=== PATIENT | female | born 1960 | race Caucasian/White ===

== ENCOUNTER → 2016-12-21 | Outpatient (CLI) | payer BC ==
--- NOTE | 2016-12-22 13:06 | MM ---
Reason for exam: screening (asymptomatic). Last mammogram was performed 1 year and 2 months ago. History: Patient is postmenopausal. Reductions of both breasts, August 31, 2007. Physical Findings: A clinical breast exam by your physician is recommended on an annual basis and results should be correlated with mammographic findings. MG Screening Mammo w CAD Bilateral CC and MLO view(s) were taken. Prior study comparison: October 27, 2015, bilateral MG screening mammo w CAD. August 15, 2014, bilateral MG screening mammo w CAD. July 31, 2013, bilateral MG screening mammo w CAD. The breast tissue is heterogeneously dense. This may lower the sensitivity of mammography. No suspicious abnormality. No significant changes when compared with prior studies. ASSESSMENT: Negative, BI-RAD 1 RECOMMENDATION: Routine screening mammogram of both breasts in 1 year.
== END | disposition home or self-care (01) ==
LOC: RADMAMWWP 06:57
PROVIDERS: ATTEND Obstetrics & Gynecology
DX: Z12.31 Encounter for screening mammogram for malignant neoplasm of breast (principal)

== ENCOUNTER → 2017-01-30 | Outpatient (CLI) | payer BC ==
--- NOTE | 2017-01-30 08:07 | BD ---
EXAMINATION TYPE: MG DEXA axial skeleton. DATE OF EXAM: 01/30/2017 COMPARISON: 06/15/2012 CLINICAL HISTORY: 56-year-old female postmenopausal screening, known osteoporosis Height: 60.1 IN Weight: 127 LBS FRAX RISK QUESTIONS: Alcohol (3 or more units per day): NO Family History (Parent hip fracture): NO Glucocorticoids (More than 3mos): NO (Ex: prednisone, prednisolone, methylprednisolone, dexamethasone, and hydrocortisone). History of Fracture in Adulthood: NO Secondary Osteoporosis: 1. Type 1 Diabetes: NO 2. Hyperthyroidism: NO 3. Menopause before 45: NO 4. Malnutrition: NO 5. Chronic liver disease: NO Rheumatoid Arthritis: NO Current Tobacco Use: NO RISK FACTORS HISTORY OF: Family History of Osteoporosis: YES MOTHER Active: YES Postmenopausal woman: AGE 44 MEDICATIONS: Osteoporosis Medications: YES Which medication: ACTONEL How Lon YEARS Additional Medications: VIT D, ACTONEL, EXAM MEASUREMENTS: Bone mineral densitometry was performed using the [employer] System. Bone mineral density as measured about the Lumbar spine is: ----- L1-L4(G/cm2): 0.870 T Score Values are as follows: ----- L2: -2.9 ----- L3: -2.7 ----- L4: -2.5 ----- L1-L4: -2.6 Bone mineral density has: Increased 5.1% since study of: 06/15/2012 Bone mineral density about the R hip (g/cm2): 0.748 Bone mineral density about the L hip (g/cm2): 0.766 T Score values are as follows: -----R Neck: -2.1 -----L Neck: -2.0 -----R Total: -1.9 -----L Total: -1.6 Bone mineral density has: Increased 2.2% since study of: 06/15/2012 IMPRESSION: Osteoporosis (T Score less than -2.5) as noted by T Score values at the There is increased fracture risk and therapy is usually indicated based on age. Re-Screen 1-2 years. NOTE: T-SCORE=SD OF THE YOUNG ADULT MEAN.
== END | disposition home or self-care (01) ==
LOC: RADBDWWP 07:08
PROVIDERS: ATTEND Obstetrics & Gynecology
DX: M81.0 Age-related osteoporosis without current pathological fracture (principal); E78.4 Other hyperlipidemia
CPT/HCPCS: 77080; 80061; 84439; 84443

== ENCOUNTER → 2018-02-06 | Outpatient (CLI) | payer BC ==
--- NOTE | 2018-02-12 10:09 | MM ---
Reason for exam: screening (asymptomatic). Last mammogram was performed 1 year and 2 months ago. History: Patient is postmenopausal. Reductions of both breasts, August 31, 2007. Physical Findings: A clinical breast exam by your physician is recommended on an annual basis and results should be correlated with mammographic findings. MG Screening Mammo w CAD Bilateral CC and MLO view(s) were taken. Prior study comparison: December 21, 2016, bilateral MG screening mammo w CAD. October 27, 2015, bilateral MG screening mammo w CAD. The breast tissue is heterogeneously dense. This may lower the sensitivity of mammography. There is chronic nodularity in the left inferior breast. No significant changes when compared with prior studies. ASSESSMENT: Negative, BI-RAD 1 RECOMMENDATION: Routine screening mammogram of both breasts in 1 year.
== END | disposition home or self-care (01) ==
LOC: RADMAMWWP 16:39
PROVIDERS: ATTEND Obstetrics & Gynecology
DX: Z12.31 Encounter for screening mammogram for malignant neoplasm of breast (principal)
CPT/HCPCS: 77067

== ENCOUNTER → 2018-06-06 | Day surgery (SDC) | payer BC ==
[2018-06-05 08:17] VITALS: BMI 24.0
[~2018-06-06] MED LIST: LACTATED RINGERS 1,000 ML IV SCH; LIDOCAINE 1% 20 ML VIAL (10MG/ML) FOR IV START INTRADERMA PRN; LIDOCAINE 1% INJ 10MG/ML (20 ML MDV) ONE; PROPOFOL 10 MG/ML 20 ML VIAL IV ONE
--- NOTE | 2018-06-06 08:19 | P.GSHP ---
History of Present Illness H&P Date: 06/06/18 CHIEF COMPLAINT: GERD and colon screen HISTORY OF PRESENT ILLNESS: The patient is a 58-year-old female who presents with gastroesophageal reflux disease and need for colon screen. Upper and lower endoscopy were offered for further evaluation and management. PAST MEDICAL HISTORY: Please see list. PAST SURGICAL HISTORY: Please see list. MEDICATIONS: Please see list. ALLERGIES: Please see list. SOCIAL HISTORY: No illicit drug use FAMILY HISTORY: No reports of Crohn disease or ulcerative colitis. REVIEW OF ORGAN SYSTEMS: CONSTITUTIONAL: No reports of fevers or chills. GI: Denies any blood in stools or constipation. PHYSICAL EXAM: VITAL SIGNS: Stable GENERAL: Well-developed pleasant in no acute distress. HEENT: No scleral icterus. Extraocular movements grossly intact. Moist buccal mucosa. NECK: Supple without lymphadenopathy. CHEST: Unlabored respirations. Equal bilateral excursions. CARDIOVASCULAR: Regular rate and rhythm. Distal 2+ pulses. ABDOMEN: Soft, nondistended. MUSCULOSKELETAL: No clubbing, cyanosis, or edema. ASSESSMENT: 1. Gastroesophageal reflux disease 2. Colon screen. PLAN: 1. Recommend proceeding with an upper and lower endoscopy Past Medical History Past Medical History: No Reported History History of Any Multi-Drug Resistant Organisms: None Reported Past Surgical History: Appendectomy, Breast Surgery Additional Past Surgical History / Comment(s): BREAST REDUCTION. BILAT CATARACTS REMOVED. COLONOSCOPY Past Anesthesia/Blood Transfusion Reactions: No Reported Reaction Smoking Status: Never smoker - Past Family History Mother Family Medical History: No Reported History Medications and Allergies Home Medications Medication Instructions Recorded Confirmed Type No Known Home Medications 06/05/18 06/05/18 History Allergies Allergy/AdvReac Type Severity Reaction Status Date / Time No Known Allergies Allergy Verified 06/05/18 08:10
[2018-06-06 10:15] VITALS: RESP 16; TEMP 97.7
--- NOTE | 2018-06-06 11:22 | P.PCN ---
Date of Procedure: 06/06/18 Description of Procedure: PREOPERATIVE DIAGNOSIS: Colonoscopy screening POSTOPERATIVE DIAGNOSIS: Colonoscopy screening Transverse colon polyp OPERATION: Colonoscopy to the ileocecal valve and appendiceal orifice. Colonoscopy wit cold forceps biopsies. SURGEON: Anu Jeter MD. ANESTHESIA: MAC. INDICATIONS: The patient is a 58-year-old female who presents for colonoscopy screening. Last colonoscopy was 10 years ago. Benefits and risks were described and informed consent was obtained. DESCRIPTION OF PROCEDURE: The patient had undergone Gatorade, MiraLAX and Dulcolax prep. Shee had been brought into the operating room and laid in the left lateral decubitus position. After adequate intravenous sedation, the rectum was examined with 2% lidocaine jelly. No external hemorrhoids were encountered. The rectal tone was within normal limits. No lesions were palpated in the rectal vault. The sigmoid colon was highly tortuous and redundant requiring abdominal wall pressure and multiple maneuvers to advance the scope safely. An Olympus colonoscope was advanced until the ileocecal valve and appendiceal orifice were clearly viewed. The prep was fair with visualization of the mucosal folds. No scattered diverticulosis was encountered. Cold forcep biopsy at transverse colon. No evidence of focal colitis was found. Retroflexion of the scope demonstrated grade 1 internal hemorrhoids without active bleeding or inflammation. The colon was desufflated. The patient had tolerated the procedure well. Withdrawal time was over 6 minutes. FINDINGS: [place] preparation quality scale 2 (1-5) Internal hemorrhoids, grade 1 No external hemorrhoids Sigmoid colon was highly tortuous and redundant No arteriovenous malformations. Removal of 1 polyp: - Cold forceps biopsy at hepatic flexure colon, 4 mm polyp. No scattered diverticulosis was encountered. No focal colitis. RECOMMENDATIONS: Repeat colonoscopy years2023. Plan - Discharge Summary Discharge Rx Participant: Yes New Discharge Prescriptions: No Action Loratadine [Claritin] 10 mg PO DAILY Discharge Medication List Loratadine [Claritin] 10 mg PO DAILY 06/06/18 [History] Follow up Appointment(s)/Referral(s): Anu Jeter MD [STAFF PHYSICIAN] - As Needed Patient Instructions/Handouts: Colorectal Polyps (DC) Activity/Diet/Wound Care/Special Instructions: Repeat colonoscopy in 5 years2023 Discharge Disposition: HOME SELF-CARE
[2018-06-06 11:51] VITALS: BP 102/57; PULSE 73
== END | disposition home or self-care (01) ==
LOC: ORWHC2ENDO 09:39
PROVIDERS: ATTEND Surgery Plastic and Reconstructive Surgery
DX: Z12.11 Encounter for screening for malignant neoplasm of colon (principal); K63.5 Polyp of colon; K21.9 Gastro-esophageal reflux disease without esophagitis; Q43.8 Other specified congenital malformations of intestine; K64.0 First degree hemorrhoids
CPT/HCPCS: 88305; 45380; J2001; J2704

== ENCOUNTER → 2019-02-19 | Outpatient (CLI) | payer BC ==
--- NOTE | 2019-02-19 08:42 | BD ---
EXAMINATION TYPE: Axial Bone Density DATE OF EXAM: 02/19/2019 COMPARISON: DEXA bone scan 2016 CLINICAL HISTORY: Postmenopausal female. Height: 60.25 Weight: 128 FRAX RISK QUESTIONS: Alcohol (3 or more units per day): no Family History (Parent hip fracture): no Glucocorticoids (More than 3mos): no (Ex: prednisone, prednisolone, methylprednisolone, dexamethasone, and hydrocortisone). History of Fracture in Adulthood: no Secondary Osteoporosis: 1. Type 1 Diabetes: no 2. Hyperthyroidism: no 3. Menopause before 45: no 4. Malnutrition: no 5. Chronic liver disease: no Rheumatoid Arthritis: no Current Tobacco Use: no RISK FACTORS HISTORY OF: Family History of Osteoporosis: yes, mother Active: yes Diet low in dairy products/other sources of calcium: no Postmenopausal woman: yes Take estrogen and/or progesterone medications: no Lost more than 2 inches in height since high school: no Frequent falls: no Poor Health: no Hyperparathyroidism: no Adrenal Insufficiency: no MEDICATIONS: Prednisone or other steroids: no Thyroid Medications:no Osteoporosis Medications: not now Which medication: Actonel How Long: about 2 years Additional Medications: Vitamin D Additional History: EXAM MEASUREMENTS: Bone mineral densitometry was performed using the [employer] System. Bone mineral density as measured about the Lumbar spine is: ----- L1-L4(G/cm2): 0.862 T Score Values are as follows: ----- L2: -2.6 ----- L3: -3.4 ----- L4: -2.4 ----- L1-L4: -2.7 Bone mineral density has: Decreased -2.3% since study of: 01/30/2017 Bone mineral density about the R hip (g/cm2): 0.703 Bone mineral density about the L hip (g/cm2): 0.755 T Score values are as follows: -----R Neck: -2.4 -----L Neck: -2.0 -----R Total: -2.1 -----L Total: -1.9 Bone mineral density has: Decreased -4.9 % since study of: 01/30/2017 IMPRESSION: Osteoporosis (T Score less than -2.5) remains present. There remains increased fracture risk and therapy is usually indicated based on age. Re-Screen 1-2 years. NOTE: T-SCORE=SD OF THE YOUNG ADULT MEAN.
--- NOTE | 2019-02-20 10:16 | MM ---
Reason for exam: screening (asymptomatic). Last mammogram was performed 1 year ago. History: Patient is postmenopausal. Reductions of both breasts, August 31, 2007. Physical Findings: A clinical breast exam by your physician is recommended on an annual basis and results should be correlated with mammographic findings. MG Screening Mammo w CAD Bilateral CC and MLO view(s) were taken. Prior study comparison: February 06, 2018, bilateral MG screening mammo w CAD. December 21, 2016, bilateral MG screening mammo w CAD. The breast tissue is heterogeneously dense. This may lower the sensitivity of mammography. There is no discrete abnormality. No significant changes when compared with prior studies. ASSESSMENT: Negative, BI-RAD 1 RECOMMENDATION: Routine screening mammogram of both breasts in 1 year.
== END | disposition home or self-care (01) ==
LOC: RADMAMWWP 07:09
PROVIDERS: ATTEND Obstetrics & Gynecology
DX: Z12.31 Encounter for screening mammogram for malignant neoplasm of breast (principal); M81.0 Age-related osteoporosis without current pathological fracture
CPT/HCPCS: 77067; 77080

== ENCOUNTER → 2020-05-15 | Outpatient (CLI) | payer BC ==
--- NOTE | 2020-05-18 11:32 | MM ---
Reason for exam: screening (asymptomatic). Last mammogram was performed 1 year and 3 months ago. History: Patient is postmenopausal. Reductions of both breasts, August 31, 2007. Physical Findings: A clinical breast exam by your physician is recommended on an annual basis and results should be correlated with mammographic findings. MG Screening Mammo w CAD Bilateral CC and MLO view(s) were taken. Prior study comparison: February 19, 2019, bilateral MG screening mammo w CAD. February 06, 2018, bilateral MG screening mammo w CAD. The breast tissue is heterogeneously dense. This may lower the sensitivity of mammography. There is no discrete abnormality. ASSESSMENT: Negative, BI-RAD 1 RECOMMENDATION: Routine screening mammogram of both breasts in 1 year.
== END | disposition home or self-care (01) ==
LOC: RADMAMWWP 07:44
PROVIDERS: ATTEND Obstetrics & Gynecology
DX: Z12.31 Encounter for screening mammogram for malignant neoplasm of breast (principal)
CPT/HCPCS: 77067

== ENCOUNTER → 2020-10-31 | Outpatient (CLI) | payer BC ==
[2020-10-31 11:39] LABS: HCT 41.4 % (37.2-46.3); HGB 13.4 g/dL (12.0-15.0); MCH 29.5 pg (27.0-32.0); MCHC 32.4 g/dL (32.0-37.0); Mean Platelet Volume 10.5 fL (9.5-12.2); Platelet Count 263 X 10*3/uL (140-440); RBC 4.55 X 10*6/uL (4.10-5.20); RDW 12.5 % (11.5-14.5); WBC 6.47 X 10*3/uL (4.50-10.00)
[2020-10-31 12:12] LABS: African American GFR (CKD) 113.2 (60.0-200.0); Albumin 4.1 g/dL (3.80-4.90); Albumin/Globulin Ratio 1.64 (1.60-3.17); Anion Gap 6.9 mmol/L (4.00-12.00); BUN/Creat Ratio 36.67 Ratio (12.00-20.00); Carbon Dioxide 26.1 mmol/L (21.6-31.8); Chol/HDL Ratio 3.4; Globulin 2.5 g/dL (1.6-3.3); LDL Cholesterol,Calculated 116.8 mg/dL (0.0-131.0); Non-African American GFR(CKD) 97.7 (60.0-200.0); Total Bilirubin 0.6 mg/dL (0.2-1.2); Total Protein 6.6 g/dL (6.2-8.2); VLDL Calculation 22.2 mg/dL (5.00-40.00)
== END | disposition home or self-care (01) ==
LOC: LABWHC1 08:00
PROVIDERS: ATTEND Family Medicine
DX: Z00.00 Encounter for general adult medical examination without abnormal findings (principal)
CPT/HCPCS: 36415; 80053; 80061; 85027

== ENCOUNTER → 2021-06-16 | Outpatient (CLI) | payer BC ==
--- NOTE | 2021-06-17 19:57 | BD ---
EXAMINATION TYPE: Axial Bone Density DATE OF EXAM: 06/16/2021 COMPARISON: 02/19/2019 CLINICAL HISTORY: 61 years year old Female. ICD-10 CODE: M85.88 DISORDER OF BONE DENSITY Height: 59 IN Weight: 135 LBS RISK FACTORS HISTORY OF: Family History of Osteoporosis: YES MOTHER AND SISTER Active: YES Diet low in dairy products/other sources of calcium: YES Postmenopausal woman: AGE 46 MEDICATIONS: Osteoporosis Medications: YES Which medication: ACTONEL How Lon YEARS Additional Medications: ACTONEL, CALCIUM, VIT D,EYE DROPS EXAM MEASUREMENTS: Bone mineral densitometry was performed using the [employer] System. Bone mineral density as measured about the Lumbar spine is: ----- L1-L4(G/cm2): 0.864 T Score Values are as follows: ----- L1: -1.9 ----- L2: -2.9 ----- L3: -2.5 ----- L4: -3.2 ----- L1-L4: -2.6 Bone mineral density has: Decreased -0.5% since study of: 02/19/2019 Bone mineral density about the R hip (g/cm2): 0.747 Bone mineral density about the L hip (g/cm2): 0.740 T Score values are as follows: -----R Neck: -2.1 -----L Neck: -2.1 -----R Total: -1.9 -----L Total: -1.9 Bone mineral density has: Increased 2.3% since study of: 02/19/2019 FRAX%s: The graph provided illustrates a 10.9 chance for a major osteoporotic fx and a 1.7 chance for the hips probability for fx in 10 years time. IMPRESSION: Osteoporosis (T Score less than -2.5). There is increased fracture risk and therapy is usually indicated based on age. Re-Screen 1-2 years. NOTE: T-SCORE=SD OF THE YOUNG ADULT MEAN.
== END | disposition home or self-care (01) ==
LOC: RADBDWWP 16:04
PROVIDERS: ATTEND Obstetrics & Gynecology
DX: Z12.31 Encounter for screening mammogram for malignant neoplasm of breast (principal); M85.88 Other specified disorders of bone density and structure, other site
CPT/HCPCS: 77080

== ENCOUNTER → 2021-06-17 | Outpatient (CLI) | payer BC ==
--- NOTE | 2021-06-18 09:34 | MM ---
Reason for exam: screening (asymptomatic). Last mammogram was performed 1 year and 1 month ago. History: Patient is postmenopausal. Reductions of both breasts, August 31, 2007. Physical Findings: A clinical breast exam by your physician is recommended on an annual basis and results should be correlated with mammographic findings. MG Screening Mammo w CAD Bilateral CC and MLO view(s) were taken. Prior study comparison: May 15, 2020, bilateral MG screening mammo w CAD. February 19, 2019, bilateral MG screening mammo w CAD. The breast tissue is heterogeneously dense. This may lower the sensitivity of mammography. There is chronic nodularity in the left breast inferiorly. Status post reduction mammoplasty changes. No significant changes when compared with prior studies. ASSESSMENT: Benign, BI-RAD 2 RECOMMENDATION: Routine screening mammogram of both breasts in 1 year.
== END | disposition home or self-care (01) ==
LOC: RADMAMWWP 07:00
PROVIDERS: ATTEND Obstetrics & Gynecology
DX: Z12.31 Encounter for screening mammogram for malignant neoplasm of breast (principal)
CPT/HCPCS: 77067

== ENCOUNTER → 2021-12-09 | Outpatient (CLI) | payer BC ==
[2021-12-09 10:53] LABS: HCT 38.9 % (37.2-46.3); HGB 12.9 g/dL (12.0-15.0); MCH 29.8 pg (27.0-32.0); MCHC 33.2 g/dL (32.0-37.0); MCV 89.8 fL (80.0-97.0); Mean Platelet Volume 10.4 fL (9.5-12.2); NRBC Per 100 WBC 0 /100 WBCS (0.0-0.0); Platelet Count 281 X 10*3/uL (140-440); RBC 4.33 X 10*6/uL (4.10-5.20); RDW 12.1 % (11.5-14.5); WBC 6.41 X 10*3/uL (4.50-10.00)
[2021-12-09 12:15] LABS: ALT 15 U/L (8-44); AST 25 U/L (13-35); African American GFR (CKD) 106.9 (60.0-200.0); Albumin 4.1 g/dL (3.8-4.9); Albumin/Globulin Ratio 1.52 (1.60-3.17); Alkaline Phosphatase 69 U/L (41-126); BUN/Creat Ratio 29.14 Ratio (12.00-20.00); Blood Urea Nitrogen 20.4 mg/dL (9.0-27.0); Calcium 9.1 mg/dL (8.7-10.3); Carbon Dioxide 28.7 mmol/L (20.0-27.5); Chloride 104 mmol/L (96-109); Chol/HDL Ratio 3.22 Ratio; Globulin 2.7 g/dL (1.6-3.3); Glucose 75 mg/dL (70-110); Non-African American GFR(CKD) 92.2 (60.0-200.0); Sodium 140 mmol/L (135-145); Total Protein 6.8 g/dL (6.2-8.2)
== END | disposition home or self-care (01) ==
LOC: LABWHC1 07:06
PROVIDERS: ATTEND Family Medicine
DX: Z00.00 Encounter for general adult medical examination without abnormal findings (principal)
CPT/HCPCS: 36415; 80053; 80061; 85027

== ENCOUNTER → 2022-06-24 | Outpatient (CLI) | payer BC ==
--- NOTE | 2022-06-27 15:34 | MM ---
Reason for Exam: Screening (asymptomatic). Last mammogram was performed 1 year(s) and 1 month(s) ago. Patient History: Menarche at age 12. First Full-Term at age 25. Postmenopausal. 08/31/2007, Bilateral Reduction. Risk Values: Fabiana 5 year model risk: 1.6%. NCI Lifetime model risk: 6.6%. Prior Study Comparison: 02/19/2019 Bilateral Screening Mammogram, [facility]. 05/15/2020 Bilateral Screening Mammogram, [facility]. 06/17/2021 Bilateral Screening Mammogram, [facility]. Tissue Density: The breast tissue is heterogeneously dense. This may lower the sensitivity of mammography. Findings: Analyzed By CAD. There is no suspicious group of microcalcifications or new suspicious mass in either breast. Overall Assessment: Negative, BI-RAD 1 Management: Screening Mammogram of both breasts in 1 year. A clinical breast exam by your physician is recommended on an annual basis and results should be correlated with mammographic findings. Electronically signed and approved by: Ryan Ramirez M.D. Radiologis
== END | disposition home or self-care (01) ==
LOC: RADMAMWWP 11:47
PROVIDERS: ATTEND Obstetrics & Gynecology
DX: Z12.31 Encounter for screening mammogram for malignant neoplasm of breast (principal); Z78.0 Asymptomatic menopausal state
CPT/HCPCS: 77067

== ENCOUNTER 2023-06-16 08:55 | Day surgery (SDC) | payer BC ==
[2023-06-16] MEDS: LACTATED RINGERS 1,000 ML IV SCH (09:14)
[2023-06-16 09:42] VITALS: RESP 16; TEMP 97.8
[2023-06-16] MEDS ORDERED: LIDOCAINE 1% INJ 10MG/ML (20 ML MDV) ONE (10:12)
[2023-06-16] MEDS ORDERED: PROPOFOL 10 MG/ML 20 ML VIAL IV ONE (10:12)
--- NOTE | 2023-06-16 10:36 | P.PCN ---
Date of Procedure: 06/16/23 Procedure(s) Performed: BRIEF HISTORY: Patient is a 63-year-old pleasant White female scheduled for an elective colonoscopy as a part of evaluation of prior history of colon polyps. Last colonoscopy was 5 years ago. PROCEDURE PERFORMED: Colonoscopywith snare polypectomy. PREOPERATIVE DIAGNOSIS: history of colon polyps. IV sedation per Anesthesia. PROCEDURE: After informed consent was obtained, the patient, was brought into the endoscopy unit. IV sedation was administered by Anesthesia under continuous monitoring. Digital rectal examination was normal. Initially the Olympus CF-160 flexible video colonoscope was then inserted in the rectum, gradually advanced into the cecum without any difficulty. Careful examination was performed as the scope was gradually being withdrawn. Ileocecal valve and the appendiceal orifice were visualized and appeared normal. Prep was excellent. Mucosa of the cecum,at 7-8 mm flat polyp that was removed by cold snare polypectomy. In the transverse colon there was a 5 mm polyp removed by cold snare polypectomy. Rest of the ascending colon, transverse colon, descending colon, sigmoid colon, and rectum appeared normal. scattered sigmoid diverticulosis.Retroflexion was performed in the rectum and no lesions were seen. The patient tolerated the procedure well. IMPRESSION: 7-8 mm flat cecal polyp status post cold snare polypectomy 5 mm transverse colon polyp status post cold snare polypectomy Scattered diverticulosis RECOMMENDATIONS: Findings of this examination were discussed with the patient as well as her family. She was advised to follow with the biopsy results. If the biopsy results adenoma she can have a repeat colonoscopyin 5 years..
[2023-06-16 11:00] VITALS: PULSE 70
[2023-06-16 11:38] VITALS: BP 112/55
== END 2023-06-16 11:23 | disposition home or self-care (01) ==
LOC: ORWHC2ENDO 08:55
PROVIDERS: ATTEND Internal Medicine Gastroenterology
DX: Z12.11 Encounter for screening for malignant neoplasm of colon (principal); D12.0 Benign neoplasm of cecum; K57.30 Diverticulosis of large intestine without perforation or abscess without bleeding; L98.9 Disorder of the skin and subcutaneous tissue, unspecified; Z86.010 Personal history of colon polyps; Z79.899 Other long term (current) drug therapy
CPT/HCPCS: 88305; 45385; J2001; J2704

== ENCOUNTER → 2023-06-26 | Outpatient (CLI) | payer BC ==
--- NOTE | 2023-06-26 15:23 | BD ---
EXAMINATION TYPE: Axial Bone Density DATE OF EXAM: 06/26/2023 CLINICAL HISTORY: 63 years old Female. ICD-10 CODE: M89.9 DISORDER OF BONE, UNSP Height: 59in Weight: 126lb FRAX RISK QUESTIONS: Secondary Osteoporosis: RISK FACTORS HISTORY OF: MEDICATIONS: Osteoporosis Medications: Which medication: Actonel How Long: off and on for about 6 years EXAM MEASUREMENTS: Bone mineral densitometry was performed using the [employer] System. Bone mineral density as measured about the Lumbar spine is: ----- L1-L4(G/cm2): 0.850 T Score Values are as follows: ----- L1: -2.0 ----- L2: -3.2 ----- L3: -2.9 ----- L4: -2.9 ----- L1-L4: -2.8 Z Score Values are as follows: ----- L1: -0.1 ----- L2: -1.4 ----- L3: -1.1 ----- L4: -1.1 ----- L1-L4: -0.9 Bone mineral density has: Decreased -1.6% since study of: 06-16-21 Bone mineral density about the R hip (g/cm2): 0.781 Bone mineral density about the L hip (g/cm2): 0.771 T Score values are as follows: -----R Neck: -2.0 -----L Neck: -2.0 -----R Total: -1.8 -----L Total: -1.9 Z Score values are as follows: -----R Neck: -0.3 -----L Neck: -0.4 -----R Total: -0.4 -----L Total: -0.5 Bone mineral density has: Increased 1.0% since study of: 06-16-21 FRAX%s: The graph provided illustrates a 10.9% chance for a major osteoporotic fx and a 1.7% chance f or the hips probability for fx in 10 years time. IMPRESSION: Osteopenia (T Score between -2.5 and -1). There is slightly increased risk of fracture and the patient may be considered for treatment. Re-Screen 2-5 years. NOTE: T-SCORE=SD OF THE YOUNG ADULT MEAN.
--- NOTE | 2023-06-27 12:41 | MM ---
Reason for Exam: Screening (asymptomatic). Last screening mammogram was performed 12 month(s) ago. Patient History: Menarche at age 12. First Full-Term at age 25. Postmenopausal. 08/31/2007, Bilateral Reduction. Risk Values: Fabiana 5 year model risk: 1.7%. NCI Lifetime model risk: 6.3%. Prior Study Comparison: 05/15/2020 Bilateral Screening Mammogram, [facility]. 06/17/2021 Bilateral Screening Mammogram, [facility]. 06/24/2022 Bilateral MG screening mammo w CAD, [facility]. Tissue Density: The breasts are heterogeneously dense, which may obscure small masses. Findings: Analyzed By CAD. There is no suspicious group of microcalcifications or new suspicious mass in either breast. Overall Assessment: Benign, BI-RAD 2 Management: Screening Mammogram of both breasts in 1 year. . Patient should continue monthly self-breast exams. A clinical breast exam by your physician is recommended on an annual basis. This exam should not preclude additional follow-up of suspicious palpable abnormalities. Note on Fabiana scores and lifetime risk: 1. A Fabiana score greater than 3% is considered moderate risk. If this is the case, consider specialist referral to assess eligibility for a risk reducing agent. 2. If overall lifetime risk for the development of breast cancer is 20% or higher, the patient may qualify for future screening with alternating mammogram and breast MRI. Electronically signed and approved by: Ryan Ramirez M.D. Radiologis
== END | disposition home or self-care (01) ==
LOC: RADBDWWP 06:52
PROVIDERS: ATTEND Family Medicine
DX: Z12.31 Encounter for screening mammogram for malignant neoplasm of breast (principal); M81.0 Age-related osteoporosis without current pathological fracture; M85.89 Other specified disorders of bone density and structure, multiple sites; Z78.0 Asymptomatic menopausal state
CPT/HCPCS: 77067; 77080